=== PATIENT | female | born 1955 | race Caucasian/White ===

== ENCOUNTER 2017-09-19 07:15 | Day surgery (SDC) | payer MEDICARE ==
[~2017-09-19] VITALS: Ht 170.2 cm; Wt 70.0 kg
[~2017-09-19 07:15] MED LIST: ALBU90OI61 INH; BENZ100A PO; CETI10 PO; CHOL10002; DIAZ5 PO; Monodox100 MG PO; OXYACE5T PO; PERM5TC TOP
[2017-09-19] MEDS ORDERED: LISI20 (07:38)
[2017-09-19] MEDS ORDERED: ATOR20 (07:38)
== END 2017-09-19 12:20 | disposition home or self-care (01) ==
LOC: ORSCSDS 07:15
PROVIDERS: Orthopaedic Surgery
PROC: 0LN70ZZ Release Right Hand Tendon, Open Approach (ICD-10-PCS; principal; 2017-09-19 08:30)
PROC: 0JNJ0ZZ Release Right Hand Subcutaneous Tissue and Fascia, Open Approach (ICD-10-PCS; principal; 2017-09-19 08:30)
DX: M72.0 Palmar fascial fibromatosis [Dupuytren] (principal); I10 Essential (primary) hypertension; Z79.899 Other long term (current) drug therapy
CPT/HCPCS: 88304; 93005; 93010; J0690; J1100; J1885; J2250; J2370; J3010

== ENCOUNTER 2018-10-02 10:18 | Day surgery (SDC) | payer MEDICARE ==
[~2018-10-02] VITALS: Ht 172.7 cm; Wt 76.1 kg
[~2018-10-02 10:18] MED LIST changes: +ATOR20; +LISI20
--- NOTE | 2018-10-02 13:27 | NUR ---
10/02/18 1327 Yari Pérez PT NOTED TO HAVE PETECHIAE PRESENT AFTER THE 1050 DRAPE AND TOURNIQUET WERE REMOVED. INFORMATION PASSED TO RECOVERY NURSE
== END 2018-10-02 14:35 | disposition home or self-care (01) ==
LOC: ORSCSDS 10:18
PROVIDERS: Orthopaedic Surgery
PROC: 0LN80ZZ Release Left Hand Tendon, Open Approach (ICD-10-PCS; principal; 2018-10-02 11:20)
PROC: 0JNK0ZZ Release Left Hand Subcutaneous Tissue and Fascia, Open Approach (ICD-10-PCS; principal; 2018-10-02 11:20)
DX: M72.0 Palmar fascial fibromatosis [Dupuytren] (principal); I10 Essential (primary) hypertension; Z87.891 Personal history of nicotine dependence; Z79.899 Other long term (current) drug therapy
CPT/HCPCS: 88304; A9270-GY; J0690; J1100; J1885; J2250; J2370; J2405; J2704; J3010

== ENCOUNTER → 2019-02-27 | Outpatient (CLI) | payer MEDICARE ==
[2019-02-28 14:28] LABS: Stool Occult Bld Immuno 1 Negative (NEGATIVE)
== END | disposition home or self-care (01) ==
LOC: LAB SHORT 17:54 → LAB 17:54
PROVIDERS: Nurse Practitioner Family
DX: Z12.11 Encounter for screening for malignant neoplasm of colon (principal)
CPT/HCPCS: G0328

== ENCOUNTER → 2020-05-16 | Outpatient (CLI) | payer MEDICARE ==
[2020-05-17 09:06] LABS: Stool Occult Bld Immuno 1 Negative (NEGATIVE)
== END | disposition home or self-care (01) ==
LOC: LAB UCHC 11:30 → LAB SHORT 11:30
PROVIDERS: Nurse Practitioner Family
DX: Z12.11 Encounter for screening for malignant neoplasm of colon (principal)
CPT/HCPCS: G0328

== ENCOUNTER → 2021-05-22 | Outpatient (CLI) | payer MEDICARE ==
[2021-05-23 13:08] LABS: Stool Occult Blood Guaiac 1 Neg (Neg)
== END ==
LOC: LAB SHORT 13:36
PROVIDERS: Physician Assistant Medical
DX: Z12.11 Encounter for screening for malignant neoplasm of colon (principal)
CPT/HCPCS: 82270

== ENCOUNTER 2021-08-18 10:02 | Day surgery (SDC) | payer MEDICARE ==
[~2021-08-18] VITALS: Ht 172.7 cm; Wt 80.4 kg
[2021-08-18] MEDS ORDERED: GABA100 PO (10:48)
[2021-08-18] MEDS ORDERED: FLUOXETINE HCL20 M2 PO (10:49)
--- NOTE | 2021-08-18 13:16 | NUR ---
08/18/21 1316 Trixie Peña History, Chart, Medications and Allergies reviewed before start of procedure. Patient confirms NPO status and agrees with scheduled surgery. 3-LEAD EKG REVIEWED WITH PHYSICIAN PRIOR TO START OF PROCEDURE. MONITOR INTACT WITH CONTINUOUS PULSE OXIMETRY AND INTERMITTENT BP. PATIENT DETERMINED TO BE ASA APPROPRIATE FOR PROPOFOL SEDATION PRIOR TO START OF PROCEDURE BY
--- NOTE | 2021-08-18 14:01 | NUR ---
RECEIVED REPORT FROM ED GONZALEZ RN. PT SITTING UP IN BED, REQUESTING PO FLUIDS.
--- NOTE | 2021-08-18 14:31 | NUR ---
Patient up to Ambulate independently. Gait steady. Discharge instructions reviewed with patient. Patient verbalizes understanding. Copy given to patient to take home. Patient States Post-Procedure ride home has been arranged. Discharged via wheelchair to private car for ride home. ALL BELONGINGS RETURNED TO PATIENT.
== END 2021-08-18 23:29 | disposition home or self-care (01) ==
LOC: ORSCMMR 10:02 → ORD 11:30 → ORSCMMR 23:29
PROVIDERS: Student in an Organized Health Care Education/Training Program
PROC: 0DBN8ZX Excision of Sigmoid Colon, Via Natural or Artificial Opening Endoscopic, Diagnostic (ICD-10-PCS; principal; 2021-08-18 11:30)
DX: R19.4 Change in bowel habit (principal); K63.5 Polyp of colon; I10 Essential (primary) hypertension; K59.09 Other constipation; R10.9 Unspecified abdominal pain; K57.30 Diverticulosis of large intestine without perforation or abscess without bleeding; Z79.899 Other long term (current) drug therapy
CPT/HCPCS: 88305; J2704; J7120

== ENCOUNTER 2025-02-19 10:58 | Day surgery (SDC) | payer MEDICARE ==
[~2025-02-19] VITALS: Ht 172.7 cm; Wt 87.8 kg
[~2025-02-19 10:58] MED LIST changes: +Balanced Salt Epinephrine Irrigation Solution 500 mL IR SCH; +FLUOXETINE HCL20 M2 PO; +GABA100 PO; +Moxifloxacin HCL 0.5 MG/0.1 ML 0.4MLSYR LEFTEYE SCH; +Ondansetron 4 MG SoluTab MM PRN; +PHENYLEPHRINE\\TROPICAMIDE\\TETRACAINE OPHTHALMIC DILATING SOLN LEFTEYE PRN; +Povidone-Iodine 450 DROP/30 ML Solution LEFTEYE SCH; +Povidone-Iodine 450 DROP/30 ML Solution ONE; +Tetracaine HCl/Pf 0.5% Opth Soln 4 ml ONE
[2025-02-19] MEDS ORDERED: ALBU90OI INH (11:12)
[2025-02-19] MEDS ORDERED: SERT20L (11:13)
--- NOTE | 2025-02-19 11:16 | NUR ---
02/19/25 Aaron6 Chely Serrato CALL LIGHT WITHIN REACH. PT ON CONTINOUS PULSE OXIMETER FOR MONITORING.
[2025-02-19] MEDS ORDERED: Tetracaine HCl 0.5% Opth Soln 15 ml LEFTEYE ONE (11:37)
--- NOTE | 2025-02-19 11:41 | NUR ---
02/19/25 1141 Shellie Campbell N 127/80 97% 10L BLOW BY O2 61 18
[2025-02-19 12:00] VITALS: BP 145/76
[2025-02-20] MEDS ORDERED: LOSA25 PO (12:50)
[2025-02-20] MEDS ORDERED: SERT50 PO (12:51)
== END 2025-02-19 12:14 | disposition home or self-care (01) ==
LOC: ORSCSDS 10:58
PROVIDERS: Student in an Organized Health Care Education/Training Program
PROC: 08RK3JZ Replacement of Left Lens with Synthetic Substitute, Percutaneous Approach (ICD-10-PCS; principal; 2025-02-19 14:30)
DX: H25.813 Combined forms of age-related cataract, bilateral (principal); I10 Essential (primary) hypertension; J45.909 Unspecified asthma, uncomplicated; Z79.899 Other long term (current) drug therapy
CPT/HCPCS: A9270; V2632

== ENCOUNTER 2025-02-27 07:04 | Day surgery (SDC) | payer MEDICARE ==
[~2025-02-27] VITALS: Ht 172.7 cm; Wt 87.8 kg
[~2025-02-27 07:04] MED LIST changes: +ALBU90OI INH; +LOSA25 PO; -Moxifloxacin HCL 0.5 MG/0.1 ML 0.4MLSYR LEFTEYE SCH; +Moxifloxacin HCL 0.5 MG/0.1 ML 0.4MLSYR RIGHTEYE SCH; -PHENYLEPHRINE\\TROPICAMIDE\\TETRACAINE OPHTHALMIC DILATING SOLN LEFTEYE PRN; +PHENYLEPHRINE\\TROPICAMIDE\\TETRACAINE OPHTHALMIC DILATING SOLN RIGHTEYE PRN; -Povidone-Iodine 450 DROP/30 ML Solution LEFTEYE SCH; -Povidone-Iodine 450 DROP/30 ML Solution ONE; +Povidone-Iodine 450 DROP/30 ML Solution RIGHTEYE SCH; +SERT20L; +SERT50 PO; -Tetracaine HCl/Pf 0.5% Opth Soln 4 ml ONE
[2025-02-27] MEDS ORDERED: Tetracaine HCl 0.5% Opth Soln 15 ml RIGHTEYE ONE (08:15)
--- NOTE | 2025-02-27 08:19 | NUR ---
02/27/25 0819 Shellie Campbell N 122/83 52 98% 10L BLOW BY O2 16
[2025-02-27 08:37] VITALS: BP 142/87
--- NOTE | 2025-02-27 08:37 | NUR ---
02/27/[address] IN TO SPEAK WITH PT
== END 2025-02-27 08:47 | disposition home or self-care (01) ==
LOC: ORSCSDS 07:04
PROVIDERS: Student in an Organized Health Care Education/Training Program
PROC: 08RJ3JZ Replacement of Right Lens with Synthetic Substitute, Percutaneous Approach (ICD-10-PCS; principal; 2025-02-27 08:30)
DX: H25.811 Combined forms of age-related cataract, right eye (principal); Z96.1 Presence of intraocular lens; I10 Essential (primary) hypertension; J45.909 Unspecified asthma, uncomplicated; Z79.899 Other long term (current) drug therapy
CPT/HCPCS: A9270; V2632

== ENCOUNTER 2025-03-05 12:59 | Day surgery (SDC) | payer MEDICARE ==
[~2025-03-05] VITALS: Ht 172.7 cm; Wt 86.3 kg
[~2025-03-05 12:59] MED LIST changes: -PHENYLEPHRINE\\TROPICAMIDE\\TETRACAINE OPHTHALMIC DILATING SOLN RIGHTEYE PRN; +Povidone-Iodine 450 DROP/30 ML Solution ONE; +Tetracaine HCl/Pf 0.5% Opth Soln 4 ml ONE; +diazePAM 5 MG,diazePAM 2 MG PO SCH
--- NOTE | 2025-03-05 13:37 | NUR ---
03/05/25 1337 Sunita Castaneda PT STATES ANXIETY IS 5/10 CALL LIGHT IN HAND PT IS ON CONTINUOUS PULSE OX MONITORING
[2025-03-05] MEDS ORDERED: Tetracaine HCl 0.5% Opth Soln 15 ml RIGHTEYE ONE (14:15)
--- NOTE | 2025-03-05 14:21 | NUR ---
03/05/25 1421 Jaclyn Freeman 53 HR 100% O2 147/83 BP 16 RR
[2025-03-05 14:32] VITALS: BP 159/82
== END 2025-03-05 14:43 | disposition home or self-care (01) ==
LOC: ORSCSDS 12:59
PROVIDERS: Student in an Organized Health Care Education/Training Program
PROC: 08PJ3JZ Removal of Synthetic Substitute from Right Lens, Percutaneous Approach (ICD-10-PCS; principal; 2025-03-05 15:00)
DX: H59.021 Cataract (lens) fragments in eye following cataract surgery, right eye (principal); I10 Essential (primary) hypertension; J45.909 Unspecified asthma, uncomplicated; Z79.899 Other long term (current) drug therapy
CPT/HCPCS: A9270